=== PATIENT | male | born 1950 | race Caucasian/White ===

== ENCOUNTER 2023-12-07 20:23 | Emergency (ER) | payer MEDICARE, SELFPAY ==
--- NOTE | ~2023-12-07 | XR_ITS ---
EXAMINATION: XR CHEST CLINICAL INFORMATION: Central chest pain. COMPARISON: None available. TECHNIQUE: 2 views of the chest were obtained. FINDINGS: Heart size is normal. The lungs are clear. No pneumothorax or pleural effusion. There are degenerative changes throughout the thoracic spine. There are surgical changes status post ACDF. XR/XR chest 2V IMPRESSION: No acute cardiopulmonary disease.
--- NOTE | 2023-12-07 20:25 | ECG_ITS ---
Test Reason : CHEST PAIN Blood Pressure : / mmHG Vent. Rate : 078 BPM Atrial Rate : 078 BPM P-R Int : 152 ms QRS Dur : 088 ms QT Int : 378 ms P-R-T Axes : 036 052 051 degrees QTc Int : 430 ms Normal sinus rhythm Nonspecific T wave abnormality Abnormal ECG No previous ECGs available Referred By: Jodie Amaya Electronically Signed By:KAYLEE ENRIQUEZ MD
[2023-12-07 20:30] VITALS: BP 121/46; PULSE 75; RESP 18; TEMP 36.6; O2SAT 99; BMI 27.4
--- NOTE | 2023-12-07 20:30 | ED.CHESTPAIN ---
HPI - Chest Pain General Chief Complaint: Chest Pain Stated Complaint: heart attack? Time Seen by Provider: 12/07/23 21:01 Source: patient and family Mode of arrival: ambulatory Limitations: no limitations History of Present Illness ED Provider: Dr. Juana Escobedo HPI narrative: Patient comes to the emergency room accompanied by his . According to the patient, approximately 2 hours ago patient was watching TV and started feeling pressure in the middle of the chest in the middle of the back. Patient states that he took 2 tablets of nitroglycerin without any relief. Patient states that it has not pain, just pressure. Earlier today, patient and his were doing some yd work, denies any strenuous exercise or heavy lifting. At this time, patient states that he has no shortness of breath, but has ongoing pressure. Patient states that back in 2007, he was told that he had minor heart attack, diagnosed at a physical exam with an EKG. Patient denies any recent illnesses, no nausea vomiting or diarrhea. Related Data Allergies Allergy/AdvReac Type Severity Reaction Status Date / Time No Known Allergies Allergy Verified 12/07/23 20:35 Review of Systems Review of Systems: Constitutional : No Weight loss, No Fever, No Chills, No Night Sweats, No Fatigue, No Malaise ENT/Mouth : No Hearing loss, No Ear Pain, No Nasal Congestion, No Sinus Pain, No Hoarseness, No sore throat, No Rhinorrhea, No Swallowing Difficulty Eyes: No Eye Pain, No Swelling, No Redness, No Foreign Body, No Discharge, No Vision Changes Cardiovascular : No Chest Pain, No SOB, No Dyspnea on Exertion, No Orthopnea, No Edema, No Palpitations Respiratory : No Cough, No Sputum, No Wheezing, No Smoke Exposure, No Dyspnea Gastrointestinal : No Nausea, No Vomiting, No Diarrhea, No Constipation, No abdominal Pain, No Hematochezia, No Melena Genitourinary : no irregular bleeding, No Dysuria, No Urinary Frequency, No Hematuria, No Urinary Incontinence, No Urgency, No Flank Pain, No Urinary Flow Changes, No Hesitancy Musculoskeletal : No joint pain, No Myalgias, No Joint Swelling Skin : No Skin Lesions, No rash Neuro : No Weakness, No Numbness, No Paresthesias, No Loss of Consciousness, No Dizziness, No Headache Psych : No Anxiety/Panic, No Depression, No SI/HI/AH/VH, No Social Issues, Heme/Lymph: Reports easy bruising, no lymphadenopathy No Lymphadenopathy Endocrine : No Polyuria, No Polydipsia, No Temperature Intolerance COUNTS INCLUDE 234 BEDS AT THE [facility] Past Medical History Medical History (Updated 12/08/23 @ 00:41 by Juana Escobedo MD) Hyperlipidemia PVCs (premature ventricular contractions) Hypertension NSTEMI (non-ST elevated myocardial infarction) Social History Social History Advance Directives: No Advance Directives Information Provided: No Do you have a plan to hurt others: No Plan Physical Exam Vital Signs: Vital Signs: Last Vital Signs Temp 99.1 F 12/07/23 20:58 Pulse 76 12/07/23 23:02 Resp 12 12/07/23 23:02 BP 133/61 12/07/23 23:02 Pulse Ox 97 12/07/23 23:02 O2 Del Method Room Air 12/07/23 23:02 BMI result Body Mass Index 27.4 Const: Other: Appearance: Alert. Oriented X3. No acute distress. Eyes: Pupils equal, round and reactive to light. ENT: Pharynx normal. Neck: Normal inspection. Neck supple. No lymph nodes noted. No crepitus CVS: Normal heart rate and rhythm. Pulses normal. Normal S1 and S2 Respiratory: No respiratory distress. Breath sounds normal. No Wheezing. No rales Abdomen: Soft and nontender. No rigidity. No distention. Skin: Skin warm and dry. Normal skin color. Normal skin turgor. Bruising in upper extremities Extremities: No lower extremity edema. No Lacerations. No Rash Neuro: Oriented X 3. No motor deficit. No sensory deficit. Moving all extremities. No slurred speech. CN 2 through 12 grossly intact Psych: calm, cooperative, normal affect Course Course Course Narrative: This is a Rapid Medical Examination (RME) performed by Jony Amaya PA-C in triage. Full HPI, ROS, assessment and treatment plan per primary provider in the Main ED. 73-year-old male with pmhx of CT in 2007 here for eval of substernal chest pain which began approximately 45 minutes ago while watching TV. Admits to feeling a weight on his chest. took 2 nitro at home without relief. denies SOB. Admits to recent travel from [place]. RRR. lungs CTA b/l. no peripheral edema. Plan: Labs, EKG, chest x-ray ordered Medical Decision Making Medical Decision Making [facility] Narrative: -my interpretation of EKG: Normal sinus rhythm, heart rate 78, no ST segment depression or elevation, no T-wave inversion, QTC 430 -my interpretation of hematology: Patient has pancytopenia. I discussed the results with the patient, this is new for the patient. Patient will follow-up with hematology oncology. Patient instructed to stop taking aspirin -patient states that he no longer has chest pain or pressure and feels well otherwise. -troponin x2 negative, normal vitals, patient asymptomatic. Differential Diagnosis Differential Diagnoses: The differential diagnosis associated with the presentation includes (ACS, Viral syndrome, pancytopenia, viral URI) Admission/Observation Consideration of admission/observation: Escalation of care including admission/observation considered (Patient has pancytopenia. However, patient has normal vitals, asymptomatic. Patient will follow-up with patient) Lab Data [facility] Lab Attestation statement: I reviewed the patient's lab results. 12/07/23 23:43 12/07/23 20:41 Labs: Lab Results 12/07/23 12/07/23 Range/Units 20:41 23:43 WBC 2.9 L 2.8 L (4.8-10.8) X10*3/uL RBC 2.84 L 2.81 L (4.60-5.80) X10*6/uL Hgb 10.7 L 10.5 L (14.0-18.0) g/dl Hct 29.4 L 29.2 L (42.0-52.0) % MCV 103.5 H 103.9 H (80.0-98.0) fL MCH 37.7 H 37.4 H (27.0-33.0) pg MCHC 36.4 H 36.0 (31.0-36.0) g/dl RDW 13.8 14.0 (11.0-16.0) % Plt Count 59 L 50 L (160-400) X10*3/uL MPV 11.6 10.4 (9.4-12.4) fL Immature Gran % (Auto) 0.7 H 0.7 H (0.0-0.4) % Neut % (Auto) 44.9 L 40.7 L (45-73) % Lymph % (Auto) 42.7 H 42.9 H (20-40) % Tucker % (Auto) 10.4 14.6 H (2-11) % Eos % (Auto) 1.0 0.7 (0-4) % Baso % (Auto) 0.3 0.4 (0-2) % Lymph # (Auto) 1.2 1.2 (1.2-4.9) X10*3/uL Tucker # (Auto) 0.3 0.4 (0.1-1.2) X10*3/uL Eos # (Auto) 0.0 0.0 (0.0-0.4) X10*3/uL Baso # (Auto) 0.0 0.0 (0.0-0.2) X10*3/uL Abs Immat Gran (auto) 0.02 0.02 (0.00-0.03) X10*3/uL Absolute Neuts (auto) 1.3 L 1.1 L (2.0-8.3) x10*3/uL Absolute Nucleated RBC 0.000 0.000 (0.0-0.012) X10*3/uL Nucleated RBC % (auto) 0.0 0.0 (0.0-0.2) /100WBC Smear Tech's Comments VERIFIED PT 12.9 (11.1-13.3) SEC INR 1.1 (0.9-1.1) D-Dimer High Sensitivty 223 NG/ML Sodium 143 (135-145) mmol/L Potassium 4.7 (3.3-5.1) mmol/L Chloride 104 (96-108) mmol/L Carbon Dioxide 27 (22-29) mmol/L Anion Gap 17 (12-20) BUN 29 H (9-16) mg/dL Creatinine 1.46 H (0.5-1.4) mg/dL Estim Creat Clear Calc 53.9 Estimated GFR 48 Random Glucose 115 (60-115) mg/dL Calcium 9.8 (8.4-10.2) mg/dL Magnesium 2.3 (1.6-2.6) mg/dL Total Bilirubin 0.3 (0.0-1.0) mg/dL AST 16 (5-37) U/L ALT 14 (0-40) U/L Alkaline Phosphatase 53 (39-117) U/L Troponin I High Sens 2.9 < 2.7 (<3.5-35.0) ng/L B-Natriuretic Peptide 62 (<100) pg/mL Total Protein 7.2 (6.5-8.0) g/dL Albumin 4.4 (3.5-5.0) g/dL Lipase 45 (8-78) U/L Independent Interpretation I performed an independent interpretation of an: Plain X-Ray Radiology Impression Discussion of test interpretation with radiology: I have reviewed the radiologist's reading. Radiologist Impression: FINDINGS: Heart size is normal. The lungs are clear. No pneumothorax or pleural effusion. There are degenerative changes throughout the thoracic spine. There are surgical changes status post ACDF. XR/XR chest 2V IMPRESSION: No acute cardiopulmonary disease. Independent Historian Clinical information obtained from an independent historian. History obtained from or confirmed by: Spouse Critical Care Time Critical Care Time Critical Care Time: Yes Total Critical Care Time: 45 Attestation: I have personally provided critical care time. Time includes review of lab data, radiology results, discussion with consultants, and monitoring for potential decompensation. Intervention performed as documented. Discharge Plan Discharge Clinical Impression: Pancytopenia, Atypical chest pain Patient Disposition: Home, Self-Care Instructions: Pancytopenia (DC), Chest Pain (ED) Additional Instructions: Please follow-up with your primary care physician tomorrow. Please call hematology/oncology to schedule an appointment. If you have any worsening or new symptoms, please return to the emergency room or call 911 Referrals: Shady Guerin MD [Physician] - 12/08/23 Print Language: [place]
[2023-12-07 20:49] LABS: Basophils Percent Auto 0.3 % (0-2); Hematocrit 29.4 % (42.0-52.0); Hemoglobin 10.7 g/dl (14.0-18.0); Imm Gran Abs Auto 0.02 X10*3/uL (0.00-0.03); Imm Gran Pct Auto 0.7 % (0.0-0.4); Lymphocytes Absolute Auto 1.2 X10*3/uL (1.2-4.9); Lymphocytes Percent Auto 42.7 % (20-40); Mean Corpuscular HGB Conc 36.4 g/dl (31.0-36.0); Mean Corpuscular Hemoglobin 37.7 pg (27.0-33.0); Mean Corpuscular Volume 103.5 fL (80.0-98.0); Mean Platelet Volume 11.6 fL (9.4-12.4); Monocytes Absolute Auto 0.3 X10*3/uL (0.1-1.2); Monocytes Percent Auto 10.4 % (2-11); Neutrophils Absolute Auto 1.3 x10*3/uL (2.0-8.3); Neutrophils Percent Auto 44.9 % (45-73); Red Blood Count 2.84 X10*6/uL (4.60-5.80); Red Cell Distribution Width 13.8 % (11.0-16.0); White Blood Count 2.9 X10*3/uL (4.8-10.8)
[2023-12-07 20:50] LABS: MANUAL DIFF FLAG SCAN; Platelet Count 59 X10*3/uL (160-400)
[2023-12-07 20:52] LABS: INTERNATIONAL NORM RATIO 1.1 (0.9-1.1); Prothrombin Time 12.9 SEC (11.1-13.3)
[2023-12-07 20:58] VITALS: BP 131/57; PULSE 76; RESP 12; TEMP 37.3; O2SAT 98
--- NOTE | 2023-12-07 21:01 | MHC.EDTECH ---
PT changed over into a hospital gown and placed on a rn integrity
[2023-12-07 21:06] LABS: SLIDE REVIEW VERIFIED
[2023-12-07 21:13] LABS: Alanine Aminotransferase 14 U/L (0-40); Albumin Level 4.4 g/dL (3.5-5.0); Alkaline Phosphatase 53 U/L (39-117); Anion Gap 17 (12-20); Aspartate Amino Transferase 16 U/L (5-37); Bilirubin Total 0.3 mg/dL (0.0-1.0); Blood Urea Nitrogen 29 mg/dL (9-16); Calcium 9.8 mg/dL (8.4-10.2); Carbon Dioxide 27 mmol/L (22-29); Chloride 104 mmol/L (96-108); Creatinine Clr Calc Pharmacy 53.9; Estimated Glomerular Filt Rate 48; Glucose Random 115 mg/dL (60-115); Lipase 45 U/L (8-78); Magnesium 2.3 mg/dL (1.6-2.6); Potassium 4.7 mmol/L (3.3-5.1); Sodium 143 mmol/L (135-145); Total Protein 7.2 g/dL (6.5-8.0)
[2023-12-07 21:21] LABS: Troponin-I High Sensitivity 2.9 ng/L (<3.5-35.0)
[2023-12-07 21:35] LABS: B Type Natriuretic Peptide 62 pg/mL (<100)
[2023-12-07 23:02] VITALS: BP 133/61; PULSE 76; RESP 12; O2SAT 97
[2023-12-07 23:16] LABS: D Dimer High Sensitivity 223 NG/ML
[2023-12-07 23:49] LABS: Basophils Percent Auto 0.4 % (0-2); Eosinophils Percent Auto 0.7 % (0-4); Hematocrit 29.2 % (42.0-52.0); Hemoglobin 10.5 g/dl (14.0-18.0); Imm Gran Abs Auto 0.02 X10*3/uL (0.00-0.03); Imm Gran Pct Auto 0.7 % (0.0-0.4); Lymphocytes Absolute Auto 1.2 X10*3/uL (1.2-4.9); Lymphocytes Percent Auto 42.9 % (20-40); MANUAL DIFF FLAG NO; Mean Corpuscular Hemoglobin 37.4 pg (27.0-33.0); Mean Corpuscular Volume 103.9 fL (80.0-98.0); Mean Platelet Volume 10.4 fL (9.4-12.4); Monocytes Absolute Auto 0.4 X10*3/uL (0.1-1.2); Monocytes Percent Auto 14.6 % (2-11); Neutrophils Absolute Auto 1.1 x10*3/uL (2.0-8.3); Neutrophils Percent Auto 40.7 % (45-73); Platelet Count 50 X10*3/uL (160-400); Red Blood Count 2.81 X10*6/uL (4.60-5.80); White Blood Count 2.8 X10*3/uL (4.8-10.8)
[2023-12-08 00:15] LABS: Troponin-I High Sensitivity < 2.7 ng/L (<3.5-35.0)
[2023-12-08 01:03] VITALS: BP 131/76; PULSE 76; RESP 16; TEMP 36.8; O2SAT 99
== END 2023-12-08 01:07 | disposition home or self-care (01) ==
PROVIDERS: Physician Assistant Medical; Emergency Provider Emergency Medicine; PCP Family Medicine
DX: R07.89 Other chest pain (principal); D61.818 Other pancytopenia; I10 Essential (primary) hypertension; I25.2 Old myocardial infarction
CPT/HCPCS: 36415; 71046; 80053; 83690; 83735; 83880; 84484; 85025; 85379; 85610; 93005; 99283; 99284

== ENCOUNTER → 2023-12-07 20:25 | Outpatient (BNV) | payer MEDICARE, SELFPAY | PROVIDERS: Emergency Provider Emergency Medicine; PCP Family Medicine; Visit Provider Internal Medicine Cardiovascular Disease | DX: R94.31 Abnormal electrocardiogram [ECG] [EKG] (principal) | CPT/HCPCS: 93010 ==